=== PATIENT | female | born 1985 | race Hispanic/Latino ===

== ENCOUNTER 2025-02-22 04:51 | Emergency (ER) | payer OTHER ==
[~2025-02-22] VITALS: Ht 154.9 cm; Wt 68.5 kg
[2025-02-22] MEDS ORDERED: PROPOFOL IV EMULSION 10MG/ML 100ML BTL IV STA (05:51)
[2025-02-22] MEDS: SODIUM CHLORIDE 0.9% 1000ML 1,000 ML IV STA (06:18)
[2025-02-22] MEDS ORDERED: PROPOFOL IV EMULSION 50 ML IV ONE (06:33)
[2025-02-22 07:01] VITALS: TEMP 97.5
[2025-02-22] MEDS ORDERED: IBUPROFEN600 MG PO (07:11)
[2025-02-22] MEDS ORDERED: TYLENOL325 MG PO (07:11)
[2025-02-22] MEDS: PROPOFOL IV EMULSION 10MG/ML 100ML BTL IV STA (07:14)
[2025-02-22 07:46] VITALS: PULSE 92; RESP 16; O2SAT 98
== END 2025-02-22 07:46 | disposition home or self-care (01) ==
LOC: FSED 05:01
DX: M25.511 Pain in right shoulder (principal); M24.411 Recurrent dislocation, right shoulder; Y93.84 Activity, sleeping
CPT/HCPCS: 23655; 73020; 73030; 94760; 99284; J2704; J7030